=== PATIENT | female | born 1955 | race African-American/Black ===

== ENCOUNTER 2024-08-27 12:48 | Emergency (ER) | payer BC, MEDICAID ==
[~2024-08-27] VITALS: Ht 170.2 cm; Wt 104.3 kg
[2024-08-27 12:53] VITALS: O2SAT 99
[2024-08-27 13:04] VITALS: BP 113/80; PULSE 89; RESP 16; TEMP 97.9; O2SAT 98
[2024-08-27 14:43] LABS: HEMATOCRIT. 38.9 % (36.0-48.0); HEMOGLOBIN. 12.7 g/dL (12.0-16.0); MEAN CORPUSCULAR HEMOGLOBIN 29.3 pg (28.0-32.0); MEAN CORPUSCULAR HGB CONC 32.7 g/dL (31.0-37.0); MEAN CORPUSCULAR VOLUME 89.8 fL (81.0-99.0); MEAN PLATELET VOLUME 9.2 fl (7.4-10.4); PLATELET 320 x1000/uL (130-400); RED BLOOD CELL COUNT 4.33 mill/uL (4.2-5.4); RED CELL DISTRIBUTION WIDTH 13.7 % (11.6-14.6); WHITE BLOOD COUNT 15.1 x1000/uL (4.5-11.0)
[2024-08-27 14:44] LABS: CHLORIDE 109 mEq/L (98-107); DIFFERENTIAL COMMENT 1; POTASSIUM 3.7 mEq/L (3.5-5.1); SODIUM 142 mEq/L (136-145)
[2024-08-27 14:45] LABS: CALCIUM 9.9 mg/dL (8.7-10.4); CARBON DIOXIDE 26 mEq/L (21-32)
[2024-08-27 14:49] LABS: CREATININE 0.9 mg/dL (0.6-1.0)
[2024-08-27 14:50] LABS: GLUCOSE 170 mg/dL (70-105); UREA NITROGEN BLOOD 24 mg/dL (9-23)
[2024-08-27 14:51] LABS: ALANINE AMINOTRANSFERASE 27 IU/L (10-49)
[2024-08-27 14:52] LABS: ALBUMIN 4.7 g/dL (3.2-4.8); ASPARTATE AMINOTRANSFERASE 19 IU/L (<34); BILIRUBIN DIRECT 0.3 mg/dL (<=3.0); BILIRUBIN TOTAL 1.1 mg/dL (0.1-1.0); PROTEIN TOTAL 7.8 g/dL (6.0-8.3)
[2024-08-27 14:57] LABS: TROPONIN I HIGH SENSITIVITY < 4 ng/L (3.0-34)
[2024-08-27 15:13] LABS: PLATELET ESTIMATE NORMAL
[2024-08-27] MEDS: ACETAMINOPHEN 325MG TABLET PO STA (15:20)
[2024-08-27] MEDS: ONDANSETRON HCL 4MG/2ML INJ IV STA (15:20)
[2024-08-27] MEDS: SODIUM CHLORIDE 0.9% 1,000 ML IV ONE (15:20)
[2024-08-27 17:24] LABS: CLARITY URINE CLOUDY (CLEAR); COLOR URINE DARK YELLOW (YELLOW); GLUCOSE URINE NEGATIVE (NEGATIVE); KETONES URINE NEGATIVE (NEGATIVE); LEUKOCYTE ESTERASE URINE NEGATIVE (NEGATIVE); NITRITE URINE NEGATIVE (NEGATIVE); OCCULT BLOOD URINE NEGATIVE (NEGATIVE); PROTEIN URINE 1+ (NEGATIVE); SPECIFIC GRAVITY URINE 1.029 (1.005-1.030)
[2024-08-27 17:35] LABS: RBC URINE 0-2 /hpf (0-2)
[2024-08-27 17:36] LABS: BACTERIA URINE 2+; SQUAMOUS EPITHELIAL CELL URINE 1+ /lpf (RARE/1+)
[2024-08-27] MEDS ORDERED: SULF1TAB48 MT (19:22)
[2024-08-27] MEDS ORDERED: ACET-2708 PO (19:22)
[2024-08-27] MEDS ORDERED: ONDA4TAB50 PO (19:22)
[2024-08-27] MEDS ORDERED: BISM262T15 PO (19:22)
[2024-08-27] MEDS: CEFTRIAXONE 1GM/50ML 50 ML IV ONE (19:30)
== END 2024-08-27 19:56 | disposition home or self-care (01) ==
LOC: ER 12:48
DX: K52.9 Noninfective gastroenteritis and colitis, unspecified (principal); R10.13 Epigastric pain; R82.71 Bacteriuria; E11.9 Type 2 diabetes mellitus without complications; E78.00 Pure hypercholesterolemia, unspecified; I11.9 Hypertensive heart disease without heart failure; Z98.890 Other specified postprocedural states
CPT/HCPCS: 99285; 96365; 96361; 71045; 96375; 80076; 80048; 81003; 83690; 85025; 87086; 84484; 36415; 93005; J0696; J2405; J7030